=== PATIENT | female | born 1990 | race Caucasian/White ===

== ENCOUNTER 2017-08-10 08:05 | Emergency (ER) | payer OTHER ==
[~2017-08-10] VITALS: Ht 157.5 cm; Wt 52.2 kg
[2017-08-10] MEDS ORDERED: NORCO 5-325 TA1 EACH PO (10:30)
[2017-08-10] MEDS ORDERED: SENNA-DOCUSATE1 EACH PO (10:30)
[2017-08-10 10:37] VITALS: BP 105/62
[2017-08-15] MEDS ORDERED: PERCOCET 7.5-31 EACH PO (08:27)
[2017-08-15] MEDS ORDERED: SENNA-DOCUSATE1 EAC1 PO (08:42)
== END 2017-08-10 10:46 | disposition home or self-care (01) ==
LOC: ER 08:05
DX: S92.321A Displaced fracture of second metatarsal bone, right foot, initial encounter for closed fracture (principal); S92.331A Displaced fracture of third metatarsal bone, right foot, initial encounter for closed fracture; S92.341A Displaced fracture of fourth metatarsal bone, right foot, initial encounter for closed fracture; S92.351A Displaced fracture of fifth metatarsal bone, right foot, initial encounter for closed fracture; V29.49XA Motorcycle driver injured in collision with other motor vehicles in traffic accident, initial encounter; Y93.89 Activity, other specified; Y92.89 Other specified places as the place of occurrence of the external cause; Y99.8 Other external cause status

== ENCOUNTER 2017-08-17 05:26 | Day surgery (SDC) | payer OTHER, BC ==
[~2017-08-17] VITALS: Ht 157.5 cm; Wt 54.4 kg
[2017-08-17] VITALS (9 sets, daily range): BP systolic 100–132; BP diastolic 56–91
--- NOTE | ~2017-08-17 | O ---
[facility] [place] [address] OPERATIVE REPORT Name: SARAI BEGUM Room #: DEP [facility].#: [id number] Admission: 08/17/17 Attend Phys: Phani Kramer MD Discharge: 08/18/17 Date of : 89 Report #: [id number] THIS REPORT FOR: //name// CC: PRIYA physician/PCP Phani Kramer DATE OF SERVICE: 08/17/2017 PREOPERATIVE DIAGNOSIS: Right foot Lisfranc fracture dislocation. POSTOPERATIVE DIAGNOSIS: Right foot Lisfranc fracture dislocation. PROCEDURE: Right foot Lisfranc open reduction internal fixation and arthrodesis. SURGEON: Phani Kramer M.D. INFORMATION DEVELOPER: Trudy Trimble. ANESTHESIA: General. ESTIMATED BLOOD LOSS: Minimal. DRAINS: No drains. TOURNIQUET TIME: 110 minutes. DESCRIPTION OF PROCEDURE: The patient brought to the operating room where she was placed under general anesthesia. Once under adequate general anesthesia, her right lower extremity was prepped and draped in a sterile manner. The extremity was elevated, exsanguinated and a tourniquet placed to 300 mmHg. A medial incision was then made overlying the first tarsometatarsal joint. This was dissected down through the soft tissue to the joint, retracting the extensor hallucis and the anterior tibialis. Once the joint was exposed, any cartilage in the joint was then subsequently removed and this was done with small osteotomes and curettes. Once removed, the joint and subchondral bone was fenestrated with K wires and subsequent fixation across the joint was achieved utilizing fluoroscopy for guidance with a 4-0 cannulated screw and a medial first TMT arthrodesis plate from the [employer] foot tray. Excellent fixation and alignment was achieved with this. We then proceeded to a dorsal incision over the third metatarsal, this was dissected down. This is approximately a 6 cm incision. Dissection was carried down to the dorsum of the foot at the 2nd and 3rd tarsometatarsal joints in particular. Exposure of the second TMT joint was achieved, this was comminuted. There were some large fragments; however, which were able to be denuded of cartilage on its surfaces similar to the first TMT joint. Once this was completed, provisional fixation was achieved across the [address] [address] OPERATIVE REPORT Name: KELSARAI Room #: DEP [facility].#: [id number] Admission: 08/17/17 Attend Phys: Phani Kramer MD Discharge: 08/18/17 Date of : 89 Report #: [id number] joint with a 4.0 cannulated screw placed with the joint reduced at the Lisfranc joint with a bone reduction tenaculum. This was placed from the lateral portion of the second metatarsal to the medial cuneiform across the Lisfranc joint. A dorsal TMT arthrodesis plate from the [employer] foot tray was then placed across this joint as well. Two screws proximally in the middle cuneiform and two screws in the metatarsal. The third TMT joint was then attended too, this was highly comminuted. There were, after irrigation, multiple fragments which were nonfixable fragments of bone. Any cartilage in the joint, particularly on the lateral cuneiform as well as the base of the third metatarsal were removed; however, there was again limited bone. Therefore, cancellous bone chips were placed into the defect and subsequent fixation across the TMT joint was achieved with a dorsal plate from the [employer] foot tray. Satisfactory alignment was achieved as verified under fluoroscopy. The fourth and fifth TMT joints were then pinned into place in their positions at the cuboid. Utilizing fluoroscopy for guidance as well as direct visualization through the incisions two 0.062 K wires were placed across this portion of the Lisfranc joint at the fourth and fifth TMT joints. These pins were then cut short and then ClearServegan pin balls were placed. The wounds were irrigated copiously and closed with 2-0 Vicryl in subcutaneous tissues and jeffrey for the skin. The wounds were dressed with Xeroform, 4 x 4s and a sterile soft compressive dressing was placed. Tourniquet was let down at approximately 110 minutes. Toes were pink and warm with good capillary refill. There were no complications from the procedure. The patient tolerated the procedure well and went to the recovery room without incident. <ELECTRONICALLY SIGNED> By: Phani Kramer MD 09/02/17 1416 [id number] Phani Kramer MD /nt
[~2017-08-17 05:26] MED LIST: NORCO 5-325 TA1 EACH PO; PERCOCET 7.5-31 EACH PO; SENNA-DOCUSATE1 EAC1 PO; SENNA-DOCUSATE1 EACH PO
[2017-08-18 04:00] VITALS: BP 100/53
[2017-08-18 09:19] VITALS: BP 105/58
[2017-08-18 10:13] VITALS: BP 105/58
== END 2017-08-18 11:20 | disposition home or self-care (01) ==
LOC: OR 05:26 → TBA 05:26 → OR 11:44 → PRE 15:41 → EDSTATUS 15:55 → OR 15:56 → 4N 17:19 → ENTRNSPT 08-18 10:59 → EDTRNSPTSTS 08-18 11:02 → OR 08-18 11:20
DX: S92.201A Fracture of unspecified tarsal bone(s) of right foot, initial encounter for closed fracture (principal); X58.XXXA Exposure to other specified factors, initial encounter; Y93.9 Activity, unspecified; Y92.89 Other specified places as the place of occurrence of the external cause; Y99.9 Unspecified external cause status
CPT/HCPCS: 50010; 50101; 50386; 51122; 51277; 51412; 51741; 53023; 53347; 55430; 56524; 57091; 62110; 62900; 64041; 70005

== ENCOUNTER → 2017-10-31 | Outpatient (CLI) | payer OTHER, BC | LOC: HYPER 11:29 | DX: T81.31XA Disruption of external operation (surgical) wound, not elsewhere classified, initial encounter (principal); T84.9XXA Unspecified complication of internal orthopedic prosthetic device, implant and graft, initial encounter; Z47.89 Encounter for other orthopedic aftercare; Y83.8 Other surgical procedures as the cause of abnormal reaction of the patient, or of later complication, without mention of misadventure at the time of the procedure ==

== ENCOUNTER → 2017-11-16 | Outpatient (CLI) | payer OTHER, BC | LOC: HYPER 06:38 | DX: T81.31XD Disruption of external operation (surgical) wound, not elsewhere classified, subsequent encounter (principal); Z47.89 Encounter for other orthopedic aftercare; Y83.8 Other surgical procedures as the cause of abnormal reaction of the patient, or of later complication, without mention of misadventure at the time of the procedure ==

== ENCOUNTER → 2017-11-24 | Outpatient (CLI) | payer OTHER, BC | LOC: HYPER 06:54 | DX: T81.31XD Disruption of external operation (surgical) wound, not elsewhere classified, subsequent encounter (principal); Z47.89 Encounter for other orthopedic aftercare; Y83.8 Other surgical procedures as the cause of abnormal reaction of the patient, or of later complication, without mention of misadventure at the time of the procedure ==

== ENCOUNTER → 2017-12-08 | Outpatient (CLI) | payer OTHER, BC | LOC: HYPER 06:45 | DX: T81.31XD Disruption of external operation (surgical) wound, not elsewhere classified, subsequent encounter (principal); Z47.89 Encounter for other orthopedic aftercare; Y83.8 Other surgical procedures as the cause of abnormal reaction of the patient, or of later complication, without mention of misadventure at the time of the procedure ==

== ENCOUNTER → 2017-12-22 | Outpatient (CLI) | payer OTHER, BC | LOC: HYPER 07:07 | DX: T81.31XD Disruption of external operation (surgical) wound, not elsewhere classified, subsequent encounter (principal); Y83.8 Other surgical procedures as the cause of abnormal reaction of the patient, or of later complication, without mention of misadventure at the time of the procedure ==

== ENCOUNTER → 2018-01-09 | Outpatient (CLI) | payer OTHER, BC | LOC: HYPER 06:57 | DX: T81.31XD Disruption of external operation (surgical) wound, not elsewhere classified, subsequent encounter (principal); Y83.8 Other surgical procedures as the cause of abnormal reaction of the patient, or of later complication, without mention of misadventure at the time of the procedure ==

== ENCOUNTER → 2018-01-31 | Outpatient (CLI) | payer OTHER, BC | LOC: HYPER 07:06 | DX: T81.30XD Disruption of wound, unspecified, subsequent encounter (principal); Y83.8 Other surgical procedures as the cause of abnormal reaction of the patient, or of later complication, without mention of misadventure at the time of the procedure ==

== ENCOUNTER → 2018-05-08 | Outpatient (CLI) | payer OTHER, BC | LOC: HYPER 06:56 | DX: T81.89XD Other complications of procedures, not elsewhere classified, subsequent encounter (principal); R26.2 Difficulty in walking, not elsewhere classified; Y83.8 Other surgical procedures as the cause of abnormal reaction of the patient, or of later complication, without mention of misadventure at the time of the procedure ==